=== PATIENT | female | born 1940 | race Caucasian/White ===

== ENCOUNTER → 2020-05-03 | Outpatient (CLI) | payer MEDICARE, BC ==
[~2020-05-03] MED LIST: ACULAR 5 ML5 ML OD; OCUFLOX OPHTH DR5 ML OD; PRED FORTE 1 ML1 ML OD; PRILOSEC 20MG20 MG PO; STRONTIUM PO; VITAMIN D31000 IU PO; [UNRECOGNIZED DRUG - OTHER] PO
== END ==
LOC: COL.LAB 09:52
DX: E21.3 Hyperparathyroidism, unspecified (principal)

== ENCOUNTER 2022-02-12 09:41 | Emergency (ER) | payer MEDICARE, BC ==
[~2022-02-12] VITALS: Ht 160 cm; Wt 60.0 kg
[2022-02-12 09:50] VITALS: BP 137/82; TEMP 98
[2022-02-12 10:51] VITALS: PULSE 74
== END 2022-02-12 10:51 | disposition home or self-care (01) ==
LOC: COL.ER 09:41
DX: S63.502A Unspecified sprain of left wrist, initial encounter (principal); S63.501A Unspecified sprain of right wrist, initial encounter; S40.021A Contusion of right upper arm, initial encounter; W22.8XXA Striking against or struck by other objects, initial encounter